=== PATIENT | male | born 1945 | race Caucasian/White ===

== ENCOUNTER → 2016-06-20 | Outpatient (CLI) | payer BC ==
[~2016-06-20] MED LIST: CSPOPS OPB; DORZ1SOL6 OPB; LEVO50TA6 PO; METR0.7527 TD; METR1GEL3; PSYL55.43 PO; PSYL58.636 PO; SYN50 PO; TRAV0.00 OPB
--- NOTE | 2016-06-20 11:11 | DIAGNOSTIC IMAGING REPORT ---
LUMBAR SPINE 5 VIEWS HISTORY: Low back pain. COMPARISON: Lumbar spine 07/01/2007. FINDINGS: There is no fracture. No subluxation. Mild to moderate disc space narrowing at L3-L4, L4-5, and L5-S1 has slightly progressed. There are endplate osteophytes at these levels. There are also mild to moderate facet degenerative changes within the lower lumbar spine which have slightly progressed. Surgical clips within the pelvis. The sacrum appears intact. Prior cholecystectomy. IMPRESSION: 1. No acute fracture or subluxation within the lumbar spine. 2. Mild to moderate degenerative disc disease and facet osteoarthritis within the lower lumbar spine as described above which is slightly progressed. Electronically signed by: Florian Dunham M.D. 06/20/2016 11:09 AM Dictated Date/Time: 06/20/2016 11:07 AM
== END | disposition home or self-care (01) ==
LOC: C.RAD 10:16
PROVIDERS: ATTEND Family Medicine
DX: M54.5 Low back pain (principal); R07.9 Chest pain, unspecified

== ENCOUNTER 2016-11-16 00:15 | Emergency (ER) | payer BC ==
[~2016-11-16] VITALS: Ht 170.2 cm; Wt 79.5 kg
[~2016-11-16 00:15] MED LIST changes: -DORZ1SOL6 OPB; -LEVO50TA6 PO; -METR0.7527 TD; -PSYL58.636 PO
[2016-11-16 00:26] VITALS: TEMP 36.7; Ht 170.2 cm; Wt 79.5 kg
[2016-11-16 00:33] VITALS: O2SAT 100
--- NOTE | 2016-11-16 00:52 | EMERGENCY ROOM VISIT NOTE ---
History Report prepared by Norberto: Carlos Armstrong Under the Supervision of: Dr. Tracey Stanford D.O. First contact with patient: 00:22 Chief Complaint: CARDIAC ASSESSMENT Stated Complaint: CHEST PRESSURE Nursing Triage Summary: Patient presents ALS from home for evaluation of sudden onset of midsternal chest pressure that began around 2330. Patient states he ate seafood and french food around 1930 tonight. Soon after, he began feeling nauseated. Denies relief with Tums. Projectile vomiting occured SPRAGGER. Patient now denies any nausea or pain. States, "I just feel like I can't breath." RR of 32 bpm noted upon arrival. Denies cardiac hx. History of Present Illness The patient is a 70 year old male who presents to the Emergency Room with complaints of waxing and waning chest pain that began at 2330, one hour prior to arrival. The patient describes his chest pain as a "tightness" and notes that he also became significantly diaphoretic this evening. He tried a Tums tablet for his symptoms, without relief. He then phoned for EMS who note that he had chest pain upon their arrival. EMS administered Aspirin and Nitroglycerin which did not provide relief either. The patient notes that he then vomited which improved his symptoms noticeably. Upon arrival to the Emergency Department his chest pain was a 0/10, but he rates his current pain in his chest as a 3 out of 10 in severity on evaluation. The patient denies any personal cardiac history, but notes that his father had a myocardial infarction at 77 years of age. His mother lived into her 90s. He also denies any history of hypotension. Source of History: patient, EMS, nursing staff Onset: 1 hour SPRAGGER Position: chest Symptom Intensity: 3/10 Quality: other (Tightness) Timing: waxes/wanes Modifying Factors (Relieving): other (Vomiting) Associated Symptoms: + diaphoresis Review of Systems See HPI for pertinent positives & negatives. A total of 10 systems reviewed and were otherwise negative. Past Medical & Surgical Medical Problems: (1) Dehydration (2) Diverticulitis (3) Hypothyroid (4) S/P hernia repair Surgical Problems: (1) H/O prostatectomy (2) S/P cholecystectomy Family History Cancer Heart disease Social History Smoking Status: Never Smoker Drug Use: none Marital Status: Housing Status: lives with significant other Occupation Status: employed Current/Historical Medications Scheduled Dorzolamide Hcl-Timolol Maleat (Cosopt Oph), 1 DROPS OPB BID Levothyroxine Sodium (Levothyroxine Sodium), 50 MCG PO DAILY Metronidazole (Topical) (Metrogel), 1 APPLN TD DAILY Psyllium (Metamucil Fiber), 1 PKT PO AMPM Travoprost (Travatan Z), 1 DROPS OPB HS Allergies Coded Allergies: No Known Allergies (Unverified , 10/22/15) Physical Exam Vital Signs Date Time Temp Pulse Resp B/P (MAP) Pulse Ox O2 Delivery O2 Flow Rate FiO2 11/16/16 03:11 78 16 108/60 97 Room Air 11/16/16 03:11 108/60 11/16/16 02:48 78 15 95 11/16/16 02:21 115/68 11/16/16 02:18 72 16 96 11/16/16 01:48 82 21 97 11/16/16 01:18 65 26 105/61 100 Room Air 11/16/16 00:33 100 Room Air 11/16/16 00:26 100 Room Air 11/16/16 00:26 36.7 67 32 92/50 100 Room Air 11/16/16 00:24 71 Physical Exam General: Patient is hyperventilating slightly on exam. HEENT: Head - normocephalic and atraumatic Pupils are equal, round, and reactive to light. Extraocular eye muscles are intact, and sclera are anicteric. Nose - moist nasal mucosa without discharge. Mouth - moist buccal mucosa. Oropharynx is nonerythematous and there is no tonsillar exudate or edema noted. Neck: Supple; no JVD, nuchal rigidity, cervical lymphadenopathy, or auscultated bruits. Heart: Regular rate and rhythm. There is a normal S1 and S2 with no murmurs, clicks, or gallops appreciated. Lungs: Clear to auscultation bilaterally with no wheezes, rales, or rhonchi. Abdomen: Soft, completely nontender, nondistended, with good bowel sounds. There are no palpable pulsatile masses or hepatosplenomegaly. There is no guarding, rigidity, or rebound noted. Extremities: No evidence of cyanosis, clubbing, or edema. There are easily palpable peripheral pulses. Skin: Slightly Pale and diaphoretic with good turgor and no rashes. Medical Decision & Procedures ER Provider Diagnostic Interpretation: Radiology results as stated below per my review and the radiologist's interpretation: CHEST X-RAY: Chest x-ray reveals no cardiomegaly, no pulmonary pathology, narrow mediastinum. Laboratory Results 11/16/16 00:47 Red Blood Count 5.37, Mean Corpuscular Volume 87.0, Mean Corpuscular Hemoglobin 30.4, Mean Corpuscular Hemoglobin Concent 34.9, Mean Platelet Volume 9.2, Neutrophils (%) (Auto) 70.6, Lymphocytes (%) (Auto) 22.1, Monocytes (%) (Auto) 6.1, Eosinophils (%) (Auto) 0.4, Basophils (%) (Auto) 0.3, Neutrophils # (Auto) 5.63, Lymphocytes # (Auto) 1.76, Monocytes # (Auto) 0.49, Eosinophils # (Auto) 0.03, Basophils # (Auto) 0.02 11/16/16 00:47 Test 11/16/16 00:47 11/16/16 02:39 White Blood Count 7.97 K/uL (4.8-10.8) Red Blood Count 5.37 M/uL (4.7-6.1) Hemoglobin 16.3 g/dL (14.0-18.0) Hematocrit 46.7 % (42-52) Mean Corpuscular Volume 87.0 fL (80-100) Mean Corpuscular Hemoglobin 30.4 pg (25-34) Mean Corpuscular Hemoglobin Concent 34.9 g/dl (32-36) Platelet Count 249 K/uL (130-400) Mean Platelet Volume 9.2 fL (7.4-10.4) Neutrophils (%) (Auto) 70.6 % Lymphocytes (%) (Auto) 22.1 % Monocytes (%) (Auto) 6.1 % Eosinophils (%) (Auto) 0.4 % Basophils (%) (Auto) 0.3 % Neutrophils # (Auto) 5.63 K/uL (1.4-6.5) Lymphocytes # (Auto) 1.76 K/uL (1.2-3.4) Monocytes # (Auto) 0.49 K/uL (0.11-0.59) Eosinophils # (Auto) 0.03 K/uL (0-0.5) Basophils # (Auto) 0.02 K/uL (0-0.2) RDW Standard Deviation 41.8 fL (36.4-46.3) RDW Coefficient of Variation 13.1 % (11.5-14.5) Immature Granulocyte % (Auto) 0.5 % Immature Granulocyte # (Auto) 0.04 K/uL (0.00-0.02) Anion Gap 15.0 mmol/L (3-11) Est Creatinine Clear Calc Drug Dose 51.0 ml/min Estimated GFR () 59.4 Estimated GFR (Non- 51.3 BUN/Creatinine Ratio 10.3 (10-20) Calcium Level 8.9 mg/dl (8.5-10.1) Total Bilirubin 0.9 mg/dl (0.2-1) Direct Bilirubin 0.2 mg/dl (0-0.2) Aspartate Amino Transf (AST/SGOT) 22 U/L (15-37) Alanine Aminotransferase (ALT/SGPT) 26 U/L (12-78) Alkaline Phosphatase 80 U/L (45-117) Total Creatine Kinase 255 U/L (39-308) Creatine Kinase MB 2.8 ng/ml (0.5-3.6) Creatine Kinase MB Ratio 1.1 (0-3.0) Troponin I < 0.015 ng/ml (0-0.045) Total Protein 7.4 gm/dl (6.4-8.2) Albumin 3.8 gm/dl (3.4-5.0) Lipase 195 U/L (73-393) Bedside Troponin I < 0.030 ng/ml (0-0.045) Laboratory results per my review. Medications Administered Medications (Trade) Dose Ordered Sig/Fransisco Route Start Time Stop Time Status Last Admin Dose Admin Sodium Chloride 500 ml @ 999 mls/hr Q31M STAT IV 11/16/16 00:56 11/16/16 01:26 DC 11/16/16 01:11 999 MLS/HR Potassium Chloride (Klor-Con M10) 20 meq NOW STAT PO 11/16/16 02:47 11/16/16 02:48 DC 11/16/16 03:10 20 MEQ Procedure Medications Ordered: Sodium Chloride, Potassium Chloride ECG Indication: chest pain Rate (beats per minute): 68 Rhythm: normal sinus Findings: no acute ischemic change, no ectopy ED Course S0032: Past medical records reviewed. The patient was evaluated in Room C12. A complete history and physical exam was performed. The patient was noted to be hypotensive. A twelve-lead EKG was obtained as described above. The patient was observing the cardiac cath lab manager and pulse oximeter. Labs were drawn as above. 0056: Ordered Sodium Chloride 500 mL @ 999 mL/hr IV. 0117: I checked on the patient at this time. He is feeling somewhat better. Chest pressure has resolved. He is agreeable to having another IV placed since the first one infiltrated.. His systolic BP was 105. 0219: The patient is feeling much better at this time. Blood pressure has come up again. 0247: Ordered Potassium Chloride 20 meq PO. 0310: POC troponin was again negative. Upon reevaluation, the patient is feeling better. I discussed findings and results with him. I verbalized agreement of the treatment plan. The patient was discharged home. Medical Decision The patient is a 70 year old male who presents to the Emergency Department for chest pain and vomiting Differential Diagnosis includes; Food borne illness, pancreatitis, gastritis, viral illness, GERD, cardiac ischemia, aortic dissection. Laboratory studies were reviewed and show; Normal white count, stable hemoglobin and hematocrit, lipase of 195, LFTs are normal, normal renal function , glucose 138, potassium 3.1, no leukocytosis, negative troponin and repeat POC troponin. Patient was found to have hypotensive blood pressure on screening. Received IV fluids to bring to standards. I attest that I have personally reviewed the patient's current medication list. The patient ate [place] food this evening and developed some nausea afterwards. He then developed some discomfort in his chest and felt increasingly nauseated and diaphoretic. The patient's noted that he is pale. EMS was called and he was given aspirin and nitroglycerin with no relief of his symptoms. However, the patient had a large projectile emesis which seemed to relieve his discomfort significantly. We did spend some time talking about his risk factors for heart disease. The patient had a normal-appearing EKG and 2 negative troponins more than 90 minutes apart here in the emergency department. I have asked the patient to return to the emergency department immediately. Develops any worsening chest discomfort. Otherwise, he should follow-up with his PCP today for an outpatient stress test. Impression Primary Impression: Substernal chest pain Additional Impression: Hypokalemia Scribe Attestation The scribe's documentation has been prepared under my direction and personally reviewed by me in its entirety. I confirm that the note above accurately reflects all work, treatment, procedures, and medical decision making performed by me. Departure Information Dispostion Home / Self-Care Referrals Matthew Plummer M.D. (PCP) Forms IMPORTANT VISIT INFORMATION Patient Instructions My [facility] Additional Instructions Rest. Take a bland diet. Take foods high in potassium. If you have any further chest pain, return to the ER. Problem Qualifiers
[2016-11-16] MEDS ORDERED: SODIUM CHLORIDE 0.9% 500ML 500 ML IV STA (00:56)
[2016-11-16 00:58] LABS: BASO % 0.3 %; BASO ABS # 0.02 K/uL (0-0.2); COMPLETE YES; EOS % 0.4 %; HEMATOCRIT 46.7 % (42-52); IG% 0.5 %; LYMPH % 22.1 %; LYMPH ABS # 1.76 K/uL (1.2-3.4); MEAN CORPUSCULAR HEMOGLOBIN 30.4 pg (25-34); MEAN CORPUSCULAR HGB CONC 34.9 g/dl (32-36); MEAN PLATELET VOLUME 9.2 fL (7.4-10.4); MONO % 6.1 %; NEUT % 70.6 %; PLATELET COUNT 249 K/uL (130-400); RED BLOOD COUNT 5.37 M/uL (4.7-6.1); WHITE BLOOD COUNT 7.97 K/uL (4.8-10.8)
[2016-11-16 01:18] LABS: ALT/SGPT 26 U/L (12-78); AST/SGOT 22 U/L (15-37); BLOOD UREA NITROGEN 14 mg/dl (7-18); BUN/CREATININE RATIO 10.3 (10-20); CALCIUM 8.9 mg/dl (8.5-10.1); CARBON DIOXIDE 21 mmol/L (21-32); CHLORIDE 103 mmol/L (98-107); GLUCOSE 138 mg/dl (70-99); POTASSIUM 3.1 mmol/L (3.5-5.1); SODIUM 139 mmol/L (136-145)
[2016-11-16 01:23] LABS: ALKALINE PHOSPHATASE 80 U/L (45-117); CKMB/CK RATIO 1.1 (0-3.0)
[2016-11-16] MEDS ORDERED: LEVO50TA6 PO (02:17)
[2016-11-16] MEDS ORDERED: METR0.7527 TD (02:18)
[2016-11-16] MEDS ORDERED: PSYL58.636 PO (02:20)
[2016-11-16] MEDS ORDERED: DORZ1SOL6 OPB (02:21)
[2016-11-16] MEDS ORDERED: TRAV0.00 OPB (02:22)
[2016-11-16] MEDS ORDERED: POTASSIUM CHLORIDE 10 MEQ TABCR PO STA (02:47)
[2016-11-16 03:11] VITALS: BP 108/60; PULSE 78; O2SAT 97
--- NOTE | 2016-11-16 07:08 | DIAGNOSTIC IMAGING REPORT ---
CHEST ONE VIEW PORTABLE CLINICAL HISTORY: 70 years-old Male presenting with cp. TECHNIQUE: Portable upright AP view of the chest was obtained. COMPARISON: 10/22/2015. FINDINGS: Atherosclerosis of the aortic arch. Cardiomediastinal silhouette otherwise normal. Lungs and pleural spaces clear. Degenerative changes of the thoracic spine. Upper abdomen normal. IMPRESSION: 1. No acute cardiopulmonary disease. Electronically signed by: Leonel Hernandes M.D. 11/16/2016 7:07 AM Dictated Date/Time: 11/16/2016 7:06 AM
== END 2016-11-16 03:23 | disposition home or self-care (01) ==
LOC: EDBD 00:15 → C.EDC 00:17 → C.EDB 03:23
DX: R07.2 Precordial pain (principal); E03.9 Hypothyroidism, unspecified; Z90.79 Acquired absence of other genital organ(s); Z82.49 Family history of ischemic heart disease and other diseases of the circulatory system; E87.6 Hypokalemia